=== PATIENT | male | born 1970 | race Two or more races ===

== ENCOUNTER 2023-10-29 00:16 | Emergency (ER) | payer BC ==
[~2023-10-29] VITALS: Ht 170.2 cm; Wt 113.4 kg
[2023-10-29] MEDS ORDERED: HYDROCODONE/APAP 5/325MG TABLET PO ONE (01:00)
[2023-10-29] MEDS ORDERED: HYDROCODONE/APAP 5/325MG TABLET ONE (01:06)
[2023-10-29] MEDS ORDERED: KETOROLAC TROMETHAMINE INJ 30 MG/ML VIAL IM ONE (02:00)
[2023-10-29] MEDS ORDERED: KETOROLAC TROMETHAMINE INJ 30 MG/ML VIAL ONE (02:20)
[2023-10-29] MEDS ORDERED: HYDR-4209 PO (03:44)
[2023-10-29] MEDS ORDERED: KETO10TA2 PO (03:44)
[2023-10-29 04:17] VITALS: BP 130/73; TEMP 98; O2SAT 98
== END 2023-10-29 04:17 | disposition home or self-care (01) ==
LOC: ER 00:25
DX: R22.9 Localized swelling, mass and lump, unspecified (principal); E11.9 Type 2 diabetes mellitus without complications; Z79.899 Other long term (current) drug therapy; V89.2XXA Person injured in unspecified motor-vehicle accident, traffic, initial encounter; Y93.89 Activity, other specified; Y92.89 Other specified places as the place of occurrence of the external cause; Y99.8 Other external cause status
CPT/HCPCS: 99285; 72125; 96372; 70450; 72131; 72128; J1885